=== PATIENT | female | born 1965 | race Asian ===

== ENCOUNTER → 2019-08-29 | Outpatient (CLI) | payer OTHER | LOC: COL.RAD 12:58 | DX: G43.909 Migraine, unspecified, not intractable, without status migrainosus (principal); R90.89 Other abnormal findings on diagnostic imaging of central nervous system | CPT/HCPCS: A9585 ==

== ENCOUNTER → 2019-10-09 | Outpatient (CLI) | payer OTHER | LOC: COL.RAD 14:18 | DX: G43.909 Migraine, unspecified, not intractable, without status migrainosus (principal); M48.02 Spinal stenosis, cervical region; M47.812 Spondylosis without myelopathy or radiculopathy, cervical region ==

== ENCOUNTER → 2020-02-03 | Outpatient (CLI) | payer OTHER | LOC: COL.RAD 10:07 | DX: S76.112A Strain of left quadriceps muscle, fascia and tendon, initial encounter (principal) ==

== ENCOUNTER → 2022-07-26 | Outpatient (CLI) | payer OTHER | LOC: COL.RAD 07-20 10:00 | DX: R91.1 Solitary pulmonary nodule (principal); R91.8 Other nonspecific abnormal finding of lung field | CPT/HCPCS: Q9967 ==

== ENCOUNTER → 2023-03-21 | Outpatient (CLI) | payer OTHER | LOC: CANSCHCLI → COL.RAD 07:35 | DX: R59.0 Localized enlarged lymph nodes (principal); R91.8 Other nonspecific abnormal finding of lung field | CPT/HCPCS: Q9967 ==

== ENCOUNTER → 2023-12-04 | Outpatient (CLI) | payer OTHER ==
[~2023-12-04] MED LIST: Iohexol 300 - 100 ML VIAL IV ONE; NS 100 ML IV SCH
== END ==
LOC: COL.RAD 11-02 09:00
DX: R91.8 Other nonspecific abnormal finding of lung field (principal); R59.0 Localized enlarged lymph nodes
CPT/HCPCS: Q9967